=== PATIENT | male | born 1990 | race African-American/Black ===

== ENCOUNTER 2020-07-21 18:08 | Emergency (ER) | payer MEDICAID ==
[~2020-07-21] VITALS: Ht 177.8 cm; Wt 70.3 kg
[2020-07-21 18:30] VITALS: BP 127/86
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
--- NOTE | 2020-07-21 19:30 | NUR ---
ED Nurse Note: Pt placed in Ch 1. Awaiting ERMD at bedside.
--- NOTE | 2020-07-21 19:45 | NUR ---
ED Nurse Note: ERMD at bedside.
--- NOTE | 2020-07-21 19:47 | Emergency Room Report ---
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 Maria Is my supervising Physician whom patient management has been discussed with. Diagnostic Impression: Primary Impression: Encounter for medication refill ER Course Pt. presents to the ED c/o running out of her medication and her soonest appt. with her pcp is january 27. pt takes [ ] Ddx considered but are not limited to: drug seeking, OD, [ ] Vital signs: are WNL, pt. is afebrile H&PE are most consistent with need for medication refill. ORDERS: none required at this time, the diagnosis is clinical ED INTERVENTIONS: None required at this time. DISCHARGE: At this time pt. is stable for d/c to home. Will provide printed patient care instructions, and any necessary prescriptions. Care plan and follow up instructions have been discussed with the patient prior to discharge. Last Vital Signs Date Time Temp Pulse Resp B/P (MAP) Pulse Ox O2 Delivery O2 Flow Rate FiO2 07/21/20 18:30 98.2 20 127/86 99 Room Air 07/21/20 18:27 90 Status: improved Disposition: HOME, SELF-CARE Condition: Stable Patient Instructions: Medicine Refill at the Emergency Department Additional Instructions: Take medications as directed. Follow up with a Primary Care Provider in 3-5 days, even if your symptoms have resolved. Return sooner to ED if new symptoms occur, or current symptoms become worse. - Please note that this Emergency Department Report was dictated using [employer] consultant technology software, occasionally this can lead to erroneous entry secondary to interpretation by the dictation equipment. Ivana Peña Jul 21, 2020 19:47
[2020-07-21] MEDS ORDERED: ISENTRESS400 MG ORAL (19:49)
[2020-07-21] MEDS ORDERED: TRUVADA1 TAB ORAL (19:49)
[2020-07-21 19:52] VITALS: BP 119/82
--- NOTE | 2020-07-21 19:52 | NUR ---
ER DISCHARGE NOTE: Patient is cleared to be discharged home per ERMD, pt is aox4, 99% on room air, with stable vital signs. pt was given dc and prescription instructions, pt was able to verbalize understanding, pt id band removed without complications. pt is able to ambulate with steady gait. pt took all belongings.
== END 2020-07-21 19:52 | disposition home or self-care (01) ==
LOC: EMR 19:45
DX: Z76.0 Encounter for issue of repeat prescription (principal); G40.909 Epilepsy, unspecified, not intractable, without status epilepticus
CPT/HCPCS: 99282